=== PATIENT | male | born 1995 | race Hispanic/Latino ===

== ENCOUNTER 2017-12-12 22:55 | Emergency (ER) | payer BC ==
[~2017-12-12] VITALS: Ht 167.6 cm; Wt 81.6 kg
--- OUTSIDE RECORDS SUMMARY | 2017-12-12 22:57 | XMS REPORT ---
[facility] Phone Unavailable Care Team Providers Care Churn Operator Margarine Name Role Phone Unavailable Unavailable Payers Payer Name Policy Type Policy Number Effective Date Expiration Date Problems This patient has no known problems. Allergies, Adverse Reactions, Alerts Allergy Name Allergy Type Status Severity Reaction(s) Onset Date Inactive Date Treating Clinician Comments No Known Allergies DA Active U 2017-10-28 00:00:00 No Known Allergies DA Active U 2017-05-16 00:00:00 Medications This patient has no known medications.
[2017-12-12] MEDS ORDERED: KETOROLAC TROMETHAMINE 60 MG/2 ML VIAL IM STA (23:14)
--- NOTE | 2017-12-13 | Diagnostic Imaging Report ---
Examination: CT head without contrast Clinical Indication: Headache. Technique: Transaxial noncontrast images from the skull base through the vertex were obtained. Sagittal and coronal reformatted images were done. Dose modulation, iterative reconstruction, and/or weight based adjustment of the mA/kV was utilized to reduce the radiation dose to as low as reasonably achievable. Comparison: None. Findings: Scalp: No abnormalities. Bones: Intact. No fractures. No blastic or lytic lesions. Brain sulci: Appropriate for patient's age. Ventricles: Normal in size and configuration. No hydrocephalus. Extra-axial space: No acute abnormalities. A right retrocerebellar archnoid cyst (4.0 x 1.4 x 2.4cm superoinferior x anteroposterior x transverse dimensions). Parenchyma: No abnormal densities. No masses, hemorrhage, or acute or chronic cortical based vascular insults. Suprasellar region: No abnormalities. Craniocervical junction: The foramen magnum is patent. No Chiari one malformation. Impression: No acute intracranial abnormality. Signed by: Dr. Queenie Morris M.D. on 12/12/2017 11:56 PM
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
[2017-12-13] MEDS ORDERED: KETOROLAC TROME10 MG PO (00:37)
== END 2017-12-13 00:43 | disposition home or self-care (01) ==
LOC: FSED 22:55
DX: G44.211 Episodic tension-type headache, intractable (principal)
CPT/HCPCS: 70450; 72125; 99283

== ENCOUNTER 2020-06-10 12:08 | Emergency (ER) | payer SELFPAY ==
[~2020-06-10] VITALS: Ht 167.6 cm; Wt 81.6 kg
[~2020-06-10 12:08] MED LIST: KETOROLAC TROME10 MG PO
[2020-06-10 13:16] VITALS: BP 126/51
== END 2020-06-10 13:14 | disposition home or self-care (01) ==
LOC: ER 13:06
DX: M25.521 Pain in right elbow (principal); M70.21 Olecranon bursitis, right elbow; M62.838 Other muscle spasm
CPT/HCPCS: 99282